=== PATIENT | male | born 1995 | race Caucasian/White ===

== ENCOUNTER 2016-09-13 19:56 | Emergency (ER) | payer BC ==
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
[2016-09-13] MEDS ORDERED: Nalbuphine 10 MG/1 ML Vial IM ONE (20:30)
[2016-09-13] MEDS ORDERED: Acetaminophen/oxyCODONE 325-10 MG Tab PO PRN (22:14)
[2016-09-13] MEDS ORDERED: Sodium Chloride 0.9% 10 ML Syringe FLUSH PRN (22:15)
[2016-09-13] MEDS ORDERED: Sodium Chloride 0.9% 2.5 ML Syringe FLUSH PRN (22:15)
[2016-09-13 22:54] LABS: CHLORIDE,CL 104 mmol/L (98-110); SODIUM,NA 141 mmol/L (136-146)
[2016-09-14] MEDS ORDERED: Ondansetron 4 MG/2 ML SDV IVPUSH ONE (01:13)
[2016-09-14] MEDS ORDERED: HYDROmorphone 2 MG/ML Syringe IVPUSH ONE (01:13)
[2016-09-14 01:47] VITALS: BP 116/68
[2016-09-14] MEDS ORDERED: Iopamidol 755 MG/ML 500 ML Multipack Bottle IVPUSH STA (06:16)
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
--- NOTE | 2016-09-14 10:10 | CT ---
EXAM DATE: 09/13/16 PATIENT'S AGE: 21 Patient: AUGUSTIN CAM Facility: [place], [place] Site . Site : 1995 Study: CT Chest [id number]/19/2017 11:12:48 PM Ordering Physician: Laurence Marques Final Report: HISTORY: Posterior right rib fractures. TECHNIQUE: The chest was scanned using helical technique at 3 mm intervals before and after 100 cc of Isovue 370. Sagittal and coronal reconstructions were performed. Study was performed in conjunction with CT of the abdomen. FINDINGS: Mediastinum and onesimo: Thyroid is unremarkable. No pathologic mediastinal lymphadenopathy is seen. The mediastinal hematoma. Cardiovascular structures: Aorta is normal caliber. No dissection prior The heart is normal size. No pericardial effusion. Lungs and pleura: The trachea and major bronchi are patent. No pneumothorax. There is a small right pleural effusion present. There is some atelectatic lung in the posterior lung bases. Chest wall: No pathologic axillary lymphadenopathy. There is some minimal streaky density seen within the right lateral chest and slight enlargement of the inferior right latissimus dorsi suggesting edema and ecchymosis. No florencio soft tissue hematoma is identified. Osseous structures: Posterior rods and paired pedicle screws fuse the thoracic and lumbar spine through L3. No acute compression fracture is appreciated. Hardware is intact. There is a nondisplaced fracture of the lateral right 7th rib. There is a displaced lateral right 8th rib fracture, displaced posterolateral right 9th rib fracture, displaced posterolateral 10th rib fracture and nondisplaced right posterior 11th rib fracture. IMPRESSION: 1. Fractures of the right 7th through 11th ribs. Fractures of the 8th, 9th and 10th ribs are displaced. There is a small right pleural effusion without pneumothorax. 2. Increased size of the right inferior latissimus dorsi muscle at adjacent subcutaneous tissue suggesting ecchymoses and edema. No florencio hematoma is seen. 3. Small amount of dependent atelectasis the posterior lungs. Dictated by Mary Monique MD @ 09/13/2016 11:25:52 PM Dictated by: Mary Monique MD @ 09/13/2016 23:40:49 (Electronic Signature) Report Signed by Proxy. [facility]
--- NOTE | 2016-09-14 10:11 | CT ---
EXAM DATE: 09/13/16 PATIENT'S AGE: 21 Patient: AUGUSTIN CAM Facility: [place], [place] Site . Site : 1995 Study: CT Abdomen [id number]/19/2017 11:12:56 PM Ordering Physician: Laurence Marques Final Report: HISTORY: Posterior right rib fractures. TECHNIQUE: The abdomen was scanned using helical technique at 3 mm intervals before and after administration of 100 cc Isovue-370. Sagittal and coronal reconstructions were performed. Study was performed in conjunction with CT of the chest. FINDINGS: Liver and gallbladder: The liver parenchyma is homogeneous. No calcified gallstones. Spleen, pancreas and adrenal glands: Spleen is homogeneous. Pancreatic parenchyma is homogeneous bridging glands are normal. Kidneys: The kidneys have symmetric nephrograms. There is trace fluid or edema seen posterior to the right kidney. There is a subtle linear lucency seen through the posterolateral right kidney axial images 103 to 107 series 301. No active bleeding identified. Retroperitoneum and lymph nodes: The abdominal aorta is normal caliber. No pathologic periaortic lymphadenopathy. Trace stranding density is seen in the fat posterior to the right kidney. GI tract: Stomach within normal limits. The bowel loops are seen. The appendix is normal. Osseous structures: There is posterior fusion of the thoracic spine through L3. Hardware is intact. There is fractures of the right 7th through 11th ribs. IMPRESSION: Trace edema or fluid seen posterior to the right kidney with a thin linear lucency in the posterolateral right kidney consistent with a small laceration of grade 3 AAST. Dictated by Mary Monique MD @ 09/13/2016 11:40:14 PM Dictated by: Mary Monique MD @ 09/13/2016 23:40:45 (Electronic Signature) Report Signed by Proxy. [facility]
== END 2016-09-14 01:30 ==
LOC: MW.ED 19:56
DX: S22.41XA Multiple fractures of ribs, right side, initial encounter for closed fracture (principal); S37.031A Laceration of right kidney, unspecified degree, initial encounter; Z98.890 Other specified postprocedural states; W18.09XA Striking against other object with subsequent fall, initial encounter; Y93.17 Activity, water skiing and wake boarding
CPT/HCPCS: 36415; 71101; 71270; 72070; 72100; 74170; 80053; 81001; 85025; 96372; 99285; A9270; J2300; Q9967; 99284

== ENCOUNTER 2016-12-21 17:36 | Emergency (ER) | payer BC ==
[2016-12-21] MEDS ORDERED: Hyoscyamine 0.125 MG Tab.SL SL ONE (17:53)
[2016-12-21 17:54] VITALS: BP 160/88
--- NOTE | 2016-12-21 18:01 | EDM.PDOC ---
ED HPI GENERAL MEDICAL PROBLEM - General Chief Complaint: Abdominal Pain Stated Complaint: PT HAS CHEST PAINS Time Seen by Provider: 12/21/16 17:49 Source of Information: Reports: Patient History Limitations: Reports: No Limitations - History of Present Illness INITIAL COMMENTS - FREE TEXT/NARRATIVE: History of present illness: Patient has a known diagnosis of gallbladder disease and is scheduled to have his gallbladder removed with Dr. Mistry. At 3:30 today he ate a piece of chocolate at 5:00 he started having upper abdominal pain wrapping around his upper trunk. Denies any fevers, chills, vomiting or diarrhea he states he felt sweaty when he had the pain. It has since decreased but is still present and tolerable. Patient is currently not on any pain medicines for any specific meds for gallbladder pain. Review of systems: As per history of present illness and below otherwise all systems reviewed and negative. Past medical history: As per history of present illness and as reviewed below otherwise noncontributory. Surgical history: As per history of present illness and as reviewed below otherwise noncontributory. Social history: No reported history of drug or alcohol abuse. Family history: As per history of present illness and as reviewed below otherwise noncontributory. Physical exam: General: Well developed, well nourished in NAD HEENT: Atraumatic, normocephalic, pupils reactive, negative for conjunctival pallor or scleral icterus, mucous membranes moist, throat clear, neck supple, nontender, trachea midline. Lungs: Clear to auscultation, breath sounds equal bilaterally, chest nontender. Heart: S1S2, regular, negative for clicks, rubs, or JVD. Abdomen: Soft, nondistended, mild tenderness right upper quadrant and epigastric area without rebound or guarding. Negative for masses or hepatosplenomegaly. Negative for costovertebral tenderness. Pelvis: Stable nontender. Genitourinary: Deferred. Rectal: Deferred. Extremities: Atraumatic, negative for cords or calf pain. Neurovascular unremarkable. Neuro: Awake, alert, oriented. Cranial nerves II through XII unremarkable. Cerebellum unremarkable. Motor and sensory unremarkable throughout. Exam nonfocal. Diagnostics: [] Therapeutics: []Labs and sublingual Impression: []Cholelithiasis Plan: []Follow-up with Salvador Castellon as needed for pain every 4 hours Definitive disposition and diagnosis as appropriate pending reevaluation and review of above. Middle Abdomen Pain Score (Numeric/FACES): 8 - Related Data Allergies Allergy/AdvReac Type Severity Reaction Status Date / Time camphor* [From Vicks Vaporub] Allergy Swelling Verified 12/21/16 17:54 eucalyptus Allergy Swelling Verified 12/21/16 17:54 [From Vicks Vaporub] menthol [From Vicks Vaporub] Allergy Swelling Verified 12/21/16 17:54 petrolatum,white Allergy Swelling Verified 12/21/16 17:54 [From Vicks Vaporub] turpentine oil Allergy Swelling Verified 12/21/16 17:54 [From Vicks Vaporub] Home Meds: Home Meds Hyoscyamine [Hyomax-SL] 0.125 mg SL Q4H PRN #20 tab.sl 12/21/16 [Rx] Past Medical History HEENT History: Reports: None Musculoskeletal History: Reports: Other (See Below) Other Musculoskeletal History: scheuermann's disease Psychiatric History: Reports: None Oncologic (Cancer) History: Reports: None Dermatologic History: Reports: None - Infectious Disease History Infectious Disease History: Reports: None - Past Surgical History Other Surgical History Comment: spinal surgery for Scheuermann's disease ( kyphosis) Social & Family History - Family History Family Medical History: Noncontributory - Tobacco Use Smoking Status *Q: Never Smoker - Recreational Drug Use Recreational Drug Use: No ED ROS GENERAL - Review of Systems Review Of Systems: See Below (See history of present illness) ED EXAM, GI/ABD - Physical Exam Exam: See Below (See history of present illness) Course - Vital Signs Last Recorded V/S: Last Vital Signs Temp 36.6 C 12/21/16 17:48 Pulse 78 12/21/16 17:48 Resp 20 12/21/16 17:48 BP 160/88 H 12/21/16 17:48 Pulse Ox 98 12/21/16 17:48 - Orders/Labs/Meds Meds: Medications Discontinued Medications Generic Name Dose Route Start Last Admin Trade Name Freq PRN Reason Stop Dose Admin Hyoscyamine 0.125 mg 12/21/16 17:53 Hyomax-Sl SL 12/21/16 17:54 ONETIME ONE Departure - Departure Time of Disposition: 18:02 Disposition: Home, Self-Care 01 Condition: Good Clinical Impression: Cholelithiasis Qualifiers: Cholelithiasis location: gallbladder Cholecystitis acuity: acute and chronic - Discharge Information Prescriptions: Hyoscyamine [Hyomax-SL] 0.125 mg SL Q4H PRN #20 tab.sl PRN Reason: Pain Referrals: PCP,None [Primary Care Provider] - Additional Instructions: The following information is given to patients seen in the emergency department who are being discharged to home. This information is to outline your options for follow-up care. We provide all patients seen in our emergency department with a follow-up referral. The need for follow-up, as well as the timing and circumstances, are variable depending upon the specifics of your emergency department visit. If you don't have a primary care physician on staff, we will provide you with a referral. We always advise you to contact your personal physician following an emergency department visit to inform them of the circumstance of the visit and for follow-up with them and/or the need for any referrals to a consulting specialist. The emergency department will also refer you to a specialist when appropriate. This referral assures that you have the opportunity for follow-up care with a specialist. All of these measure are taken in an effort to provide you with optimal care, which includes your follow-up. Under all circumstances we always encourage you to contact your private physician who remains a resource for coordinating your care. When calling for follow-up care, please make the office aware that this follow-up is from your recent emergency room visit. If for any reason you are refused follow-up, please contact the [facility] Emergency Department at and asked to speak to the emergency department charge nurse. Levsin sublingual every 4 hours as needed for upper abdominal pain. Do not eat any fatty foods, follow-up with Dr. MISTRY or return to ER if symptoms worsen or change [facility] - General Surgery Professional Building [address] [place] [address], [address] [place] [address]
== END 2016-12-21 18:15 | disposition home or self-care (01) ==
LOC: MW.ED 17:36
DX: K80.20 Calculus of gallbladder without cholecystitis without obstruction (principal); Z88.8 Allergy status to other drugs, medicaments and biological substances
CPT/HCPCS: 99283; A9270

== ENCOUNTER 2017-01-02 06:31 | Day surgery (SDC) | payer BC ==
[~2017-01-02 06:31] MED LIST: Lactated Ringers 1,000 ML IV SCH; ceFAZolin 2 GM in Premix Bag 1 BAG IV ONE
[2017-01-02] MEDS ORDERED: fentaNYL 100 MCG/2 ML SDV ONE ×2 (07:19→08:51)
[2017-01-02] MEDS ORDERED: Propofol 200 MG/20 ML SDV ONE ×2 (07:19→09:16)
[2017-01-02] MEDS ORDERED: Midazolam 1 MG/ML 2 ML SDV ONE (07:19)
[2017-01-02] MEDS ORDERED: Lidocaine 2% 5 ML SDV ONE (07:19)
[2017-01-02] MEDS ORDERED: Ketorolac 30 MG/ML SDV ONE (07:20)
[2017-01-02] MEDS ORDERED: Ondansetron 4 MG/2 ML SDV ONE (07:20)
[2017-01-02] MEDS ORDERED: Rocuronium 10 MG/ML 10 ML Syringe ONE (07:20)
[2017-01-02] MEDS ORDERED: Neostigmine Methylsulfate 1 MG/ML 5 ML Syringe ONE (07:20)
[2017-01-02] MEDS ORDERED: HYDROmorphone 2 MG/ML Syringe ONE (07:21)
[2017-01-02] MEDS ORDERED: Bupivacaine 0.25%/EPINEPHrine 1:200,000 10 ML SDV ONE (07:29)
[2017-01-02] MEDS ORDERED: Scopolamine 1.5 MG Transdermal Patch TRDERM PRN (07:31)
--- NOTE | 2017-01-02 07:35 | PCM.PREANE ---
Preanesthetic Assessment - Anesthesia/Transfusion/Family Hx Anesthesia History: Prior Anesthesia Without Reaction Family History of Anesthesia Reaction: No Transfusion History: No Prior Transfusion(s) - Review of Systems General: No Symptoms Pulmonary: No Symptoms Cardiovascular: No Symptoms Gastrointestinal: No Symptoms Neurological: No Symptoms Other: Reports: None - Physical Assessment NPO Status Date: 01/01/17 Height: 1.83 m Weight: 112.945 kg ASA Class: 1 Mental Status: Alert & Oriented x3 Airway Class: Mallampati = 1 Dentition: Reports: Normal Dentition ROM/Head Extension: Full Lungs: Clear to Auscultation, Normal Respiratory Effort Cardiovascular: Regular Rate, Regular Rhythm - Allergies Allergies/Adverse Reactions: Allergies Allergy/AdvReac Type Severity Reaction Status Date / Time camphor* [From Vicks Vaporub] Allergy Swelling Verified 12/21/16 17:54 eucalyptus Allergy Swelling Verified 12/21/16 17:54 [From Vicks Vaporub] menthol [From Vicks Vaporub] Allergy Swelling Verified 12/21/16 17:54 petrolatum,white Allergy Swelling Verified 12/21/16 17:54 [From Vicks Vaporub] turpentine oil Allergy Swelling Verified 12/21/16 17:54 [From Vicks Vaporub] - Anesthesia Plan Pre-Op Medication Ordered: Other (scop patch) - Acknowledgements Anesthesia Type Planned: General Anesthesia Pt an Appropriate Candidate for the Planned Anesthesia: Yes Alternatives and Risks of Anesthesia Discussed w Pt/Guardian: Yes Pt/Guardian Understands and Agrees with Anesthesia Plan: Yes PreAnesthesia Questionnaire HEENT History: Reports: Other (See Below) Other HEENT History: wears glasses Gastrointestinal History: Reports: Other (See Below) Other Gastrointestinal History: rt upper quadrant pain Musculoskeletal History: Reports: Other (See Below) Other Musculoskeletal History: scheuermann's kyphosis, hx fx ribs Psychiatric History: Reports: None Endocrine/Metabolic History: Reports: Obesity/BMI 30+ Oncologic (Cancer) History: Reports: None Dermatologic History: Reports: None - Infectious Disease History Infectious Disease History: Reports: None - Past Surgical History Head Surgeries/Procedures: Reports: None Neurological Surgical History: Reports: Other (See Below) Other Neurological Surgeries/Procedures: upper back surgery for tx of kyphosis with rods and screws T spine through L3 at 15 yrs old - SUBSTANCE USE Smoking Status *Q: Never Smoker Recreational Drug Use History: No - HOME MEDS Home Medications: Home Meds Hyoscyamine [Hyomax-SL] 0.125 mg SL Q4H PRN #20 tab.sl 12/21/16 [Rx] Hydrocodone/Acetaminophen [Hydrocodon-Acetaminophen 5-325] 1 each PO DAILY 01/02 [History] - CURRENT (IN HOUSE) MEDS Current Meds: Current Medications Lactated Ringer's (Ringers, Lactated) 1,000 mls @ 125 mls/hr IV ASDIRECTED [facility] Last Admin: 01/02/17 07:11 Dose: 125 mls/hr Scopolamine (Transderm-Scop) 1.5 mg TRDERM Q72H PRN PRN Reason: Nausea/Vomiting Discontinued Medications Bupivacaine HCl/Epinephrine Bitart (Marcaine 0.25%/Epinephrine 1:200,000) Confirm Administered Dose 20 ml .ROUTE .STK-MED ONE Stop: 01/02/17 07:30 Fentanyl (Sublimaze) Confirm Administered Dose 300 mcg .ROUTE .STK-MED ONE Stop: 01/02/17 07:20 Glycopyrrolate () Confirm Administered Dose 1 mg .ROUTE .STK-MED ONE Stop: 01/02/17 07:21 Hydromorphone HCl (Dilaudid) Confirm Administered Dose 2 mg .ROUTE .STK-MED ONE Stop: 01/02/17 07:22 Cefazolin Sodium/Dextrose 2 gm (/ Premix) 50 mls @ 100 mls/hr IV ONETIME ONE Stop: 01/02/17 05:29 Ketorolac Tromethamine (Toradol) Confirm Administered Dose 30 mg .ROUTE .STK- MED ONE Stop: 01/02/17 07:21 Lidocaine (Xylocaine-Mpf 2%) Confirm Administered Dose 10 ml .ROUTE .STK-MED ONE Stop: 01/02/17 07:20 Midazolam HCl (Versed 1 Mg/Ml) Confirm Administered Dose 2 mg .ROUTE .STK-MED ONE Stop: 01/02/17 07:20 Neostigmine Methylsulfate (Neostigmine) Confirm Administered Dose 5 mg .ROUTE .STK-MED ONE Stop: 01/02/17 07:21 Ondansetron HCl (Zofran) Confirm Administered Dose 4 mg .ROUTE .STK-MED ONE Stop: 01/02/17 07:21 Propofol (Diprivan 20 Ml) Confirm Administered Dose 400 mg .ROUTE .STK-MED ONE Stop: 01/02/17 07:20 Rocuronium [place] (Zemuron) Confirm Administered Dose 100 mg .ROUTE .STK-MED ONE Stop: 01/02/17 07:21
[2017-01-02] MEDS ORDERED: Acetaminophen/oxyCODONE 325-10 MG Tab PO ONE (08:14)
[2017-01-02] MEDS ORDERED: Octyl 2-Cyanoacrylate 1 Tube ONE (08:15)
[2017-01-02] MEDS ORDERED: fentaNYL 100 MCG/2 ML SDV IVPUSH PRN (08:37)
[2017-01-02] MEDS ORDERED: HYDROmorphone 2 MG/ML Syringe IVPUSH ONE (08:39)
--- NOTE | 2017-01-02 10:48 | PCM.POSTAN ---
POST ANESTHESIA ASSESSMENT - MENTAL STATUS Mental Status: Alert, Oriented - RESPIRATORY Respiratory Status: Respiratory Rate WNL, Airway Patent, O2 Saturation Stable - CARDIOVASCULAR CV Status: Pulse Rate WNL, Blood Pressure Stable - GASTROINTESTINAL GI Status: No Symptoms - PAIN Pain Score: 1 - POST OP HYDRATION Hydration Status: Adequate & Stable
--- NOTE | 2017-01-02 11:26 | PCM.OPNOTE ---
- General Post-Op/Procedure Note Date of Surgery/Procedure: 01/02/17 Operative Procedure(s): lap artis Findings: severe adherence to surrounding organs cw chronic and acute cholecystitis; wall is not thickened; large amt of gall stones requiring a large opening to get gall bladder out; [id number] Pre Op Diagnosis: chronic cholecystitis Post-Op Diagnosis: Same Anesthesia Technique: General ET Tube Primary Surgeon: Bart Mistry Pathology: sent Complications: None Condition: Good Free Text/Narrative:: Intake & Output 01/01/17 01/02/17 01/02/17 22:59 06:59 14:59 Intake Total 1550 Output Total 60 Balance 1490
--- NOTE | 2017-01-02 12:55 | PCM48HPAN ---
Post Anesthesia Note - EVALUATION WITHIN 48HRS OF ANESTHETIC Vital Signs in Normal Range: Yes Patient Participated in Evaluation: Yes Respiratory Function Stable: Yes Airway Patent: Yes Cardiovascular Function Stable: Yes Hydration Status Stable: Yes Pain Control Satisfactory: Yes Nausea and Vomiting Control Satisfactory: Yes Mental Status Recovered: Yes
--- NOTE | 2017-01-02 13:37 | OR ---
SURGEON: Bart Mistry MD DATE OF PROCEDURE: 01/02/2017 PREOPERATIVE DIAGNOSIS: Chronic and acute cholecystitis. POSTOPERATIVE DIAGNOSIS: Chronic and acute cholecystitis. PROCEDURE PERFORMED: Laparoscopic cholecystectomy. COMPLICATIONS: None. FINDINGS: A very severe adherence of the gallbladder surrounding organ consistent with chronic and acute cholecystitis. Wall is not thickened. Large amount of gallstone requiring a large opening to get the gallbladder out and at the end of the procedure Surgicel was inserted for hemostasis. DESCRIPTION OF PROCEDURE: The patient was taken to the operating room and placed in the supine position. After the intubation of general endotracheal anesthesia, the patient's abdomen was prepped and draped in the usual sterile fashion. Using Optiview, a 12 mm trocar was placed supraumbilically and then followed with pneumoperitoneum. A 5 mm trocar was placed in the epigastrium and two 5 mm trocars placed in the right upper quadrant. The placement of the last three trocars was done under direct video supervision. Upon gaining entrance to the abdominal cavity, an extensive examination was then performed. The gallbladder was located and identified and retracted to the dome of the liver at the triangle of Calot. The cystic duct was clipped three more times and then using the endoscopic clip, was transected with placement of the endoscopic clip and transection was performed with care, ensuring the posterior prong of the instruments were clearly visualized prior to exercising the procedure. The gallbladder was dissected using electrocautery out of the liver bed and then removed using endoscopic bag through the umbilical site. The gallbladder was removed en bloc and there was no bile spillage and this was then followed with extensive irrigation until the bile was clear from blood and bile. The trocars were then removed under direct video supervision. The 12 mm umbilical site was then closed with deep stitches using 0 Vicryl followed with proximal stitches using 3-0 Vicryl and Dermabond. The other three trocar sites were closed with 3-0 Vicryl followed with approximation of skin with Dermabond. The patient was then awakened and extubated and transferred to the recovery room in hemodynamically stable condition. At the conclusion of the surgery, before closing the abdominal wound, instrument count and sponge count were done and were correct. The patient tolerated the procedure well and there were no intraoperative complications. Dr. Mistry was present through the whole procedure. Just before surgery, a timeout was called. The patient was identified and procedure identified and procedure started. Intraoperative findings as dictated above and a Surgicel piece was used to help hemostasis. SERENA / RADHA /[id number]
[2017-01-02 15:03] VITALS: BP 165/97
== END 2017-01-02 13:05 | disposition home or self-care (01) ==
LOC: MW.SDS 06:31
PROVIDERS: ATTEND Surgery
DX: K80.12 Calculus of gallbladder with acute and chronic cholecystitis without obstruction (principal); M42.00 Juvenile osteochondrosis of spine, site unspecified; E66.9 Obesity, unspecified; Z68.33 Body mass index [BMI] 33.0-33.9, adult; Z79.891 Long term (current) use of opiate analgesic; Z83.3 Family history of diabetes mellitus; Z82.3 Family history of stroke; Z82.49 Family history of ischemic heart disease and other diseases of the circulatory system; Z88.8 Allergy status to other drugs, medicaments and biological substances; Z98.890 Other specified postprocedural states
CPT/HCPCS: 47562; A9270; J0690; J1170; J2250; J2405; J3010; J7120; 00790; 88304; J1885; J2704

== ENCOUNTER 2017-11-23 11:45 | Day surgery (SDC) | payer BC ==
[~2017-11-23 11:45] MED LIST changes: +Midazolam 1 MG/ML 2 ML SDV ONE; +Propofol 200 MG/20 ML SDV ONE; -ceFAZolin 2 GM in Premix Bag 1 BAG IV ONE; +fentaNYL 100 MCG/2 ML SDV ONE
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
--- NOTE | 2017-11-23 12:45 | PCM.POSTAN ---
POST ANESTHESIA ASSESSMENT - MENTAL STATUS Mental Status: Alert, Oriented - RESPIRATORY Respiratory Status: Respiratory Rate WNL, Airway Patent, O2 Saturation Stable - CARDIOVASCULAR CV Status: Pulse Rate WNL, Blood Pressure Stable - GASTROINTESTINAL GI Status: No Symptoms - POST OP HYDRATION Hydration Status: Adequate & Stable
[2017-11-23 13:01] VITALS: BP 156/8
--- NOTE | 2017-11-23 13:20 | PCM48HPAN ---
Post Anesthesia Note - EVALUATION WITHIN 48HRS OF ANESTHETIC Vital Signs in Normal Range: Yes Patient Participated in Evaluation: Yes Respiratory Function Stable: Yes Airway Patent: Yes Cardiovascular Function Stable: Yes Hydration Status Stable: Yes Pain Control Satisfactory: Yes Nausea and Vomiting Control Satisfactory: Yes Mental Status Recovered: Yes Resp Rate: 15
--- NOTE | 2017-11-27 09:01 | PCM.SN ---
- Free Text/Narrative Note: see dict [id number]
--- NOTE | 2017-11-27 10:07 | OR ---
SURGEON: Bart Mistry MD DATE OF PROCEDURE: 11/23/2017 PREOPERATIVE DIAGNOSIS: Epigastric pain. POSTOPERATIVE DIAGNOSIS: Gastroesophageal reflux disease. PROCEDURE PERFORMED: EGD with biopsy. DESCRIPTION OF PROCEDURE: EGD: The patient was taken to the endoscopy room, and with the RF MANAGER, Diprivan was administered. A well-lubricated EGD scope was gently inserted through the oropharynx, down the esophagus, passing through the gastroesophageal junction, into the stomach. The mucosa was examined upon the passage. Any etiology will be noted. Once in the stomach, we continued to advance to the distal antrum, passed through the pylorus into the second portion of the duodenum. Again, the mucosa was examined for any abnormality and etiology. The scope was then retrieved back to the stomach and then retroflexed to look at the fundus of the stomach. If a biopsy was indicated, we will biopsy the antrum, body, and gastroesophageal junction. The air will be sucked out while the scope is retrieved to reduce the patient's discomfort. The patient tolerated the procedure well. There were no intraoperative complications. Dr. Mistry was present through the whole procedure. Prior to surgery, a time-out had been called, the patient identified, procedure identified and antibiotic administered. FINDINGS: 1. The patient was easily sedated with RF MANAGER and Diprivan. The patient was soundly snoring. 2. Oropharynx and proximal esophagus were free of disease. No stricture, ulceration, or bleeding. Distal esophagus at GE junction at 40, shows minimal salmon-color change, consistent with mild acid reflux and stomach rugae was normal in appearance and antrum was grossly normal. Duodenum was grossly normal. Scope retrieved back to the stomach, retroflexed look at the fundus of stomach and there was no hiatal hernia. Biopsy done at antrum, and body and GE junction at 40, and sucked out the air while the scope pulling out. The patient tolerated the procedure well. The patient has a lot of allergy. We will confirm with the nursing staff to confirm the allergies. SERENA / RADHA /[id number]
== END 2017-11-23 13:15 | disposition home or self-care (01) ==
LOC: MW.SDS 11:45
PROVIDERS: ATTEND Surgery
DX: K20.9 Esophagitis, unspecified (principal); E66.9 Obesity, unspecified; Z68.35 Body mass index [BMI] 35.0-35.9, adult; F17.210 Nicotine dependence, cigarettes, uncomplicated; Z91.048 Other nonmedicinal substance allergy status
CPT/HCPCS: 43239; J2250; J2704; J3010; J7120